=== PATIENT | female | born 1955 | race African-American/Black ===

== ENCOUNTER → 2023-02-12 | Outpatient (CLI) | payer SELFPAY ==
[~2023-02-12] MED LIST: AMLO-170 PO; HYDR25TA9 PO; MULT-235 PO; POTA-148 PO
[2023-02-12 16:48] LABS: HEMATOCRIT(ML) 34.6 % (36.0-46.0); HEMOGLOBIN 11.9 g/dL (12.0-15.0); MEAN CORP HGB 32.2 pg (26-34); MEAN CORP HGB CONCENTRATION 34.4 g/dL (33-36.5); MEAN CORP VOLUME 93.8 fL (78-100); RED BLOOD CELL 3.69 10^6/uL (4.00-5.20); WHITE BLOOD CELL 7.3 10^3/uL (4.5-11.0)
[2023-02-12 17:04] LABS: INR 1.3; PROTHROMBIN PROTIME 13.1 SEC (9.7-11.6)
[2023-02-12 17:16] LABS: ALBUMIN(ML) 3.2 g/dL (3.4-5.0); ALBUMIN/GLOBULIN RATIO 0.666; ANION GAP 13.6; CALCIUM 9.2 mg/dL (8.4-10.5); CARBON DIOXIDE 28.3 mmol/L (20.0-32); CREATININE SERUM 1.58 mg/dL (0.59-1.40); EST GFR, NON-AA 32.4 (>/=60); POTASSIUM 2.9 mmol/L (3.6-5.2)
== END | disposition home or self-care (01) ==
LOC: NPLAB 15:02
PROVIDERS: ATTEND Family Medicine
DX: I10 Essential (primary) hypertension (principal)
CPT/HCPCS: 36415; 80053; 85027; 85610; 85730

== ENCOUNTER 2023-02-20 07:59 | Inpatient (IN) | payer SELFPAY ==
[~2023-02-20] VITALS: Ht 152.4 cm; Wt 103.0 kg
[2023-02-20] VITALS (11 sets, daily range): BP systolic 126–155; BP diastolic 67–93; PULSE 78–93; RESP 16–20; TEMP 97.1–98.3; O2SAT 90–96
[~2023-02-20 07:59] MED LIST changes: -AMLO-170 PO; -HYDR25TA9 PO; -MULT-235 PO; +NS 100ML 100 ML IV ONE; +NS 3000ML IRR IR ONE; -POTA-148 PO; +ROCEPHIN IM ONE; +SODIUM CHLORIDE IRR BOTTLE IR ONE
[2023-02-20] MEDS: LACTATED RINGERS 1,000 ML IV SCH ×2 (08:30→17:29)
[2023-02-20] MEDS ORDERED: HYDR25TA9 PO (08:40)
[2023-02-20] MEDS ORDERED: AMLO-170 PO (08:40)
[2023-02-20] MEDS ORDERED: POTA-148 PO (08:40)
[2023-02-20] MEDS ORDERED: MULT-235 PO (08:40)
[2023-02-20] MEDS ORDERED: AMINOACETIC ACID IR ONE ×5 (09:35→11:31)
[2023-02-20] MEDS ORDERED: ZOFRAN ONE ×2 (09:49→09:52)
[2023-02-20] MEDS ORDERED: VERSED ONE (09:49)
[2023-02-20] MEDS ORDERED: NS 1000ML 1,000 ML ONE (09:49)
[2023-02-20] MEDS ORDERED: DIPRIVAN 100 ML IV ONE (09:49)
[2023-02-20] MEDS ORDERED: DECADRON ONE (09:49)
[2023-02-20] MEDS: ROCEPHIN 1,000 MG in NS 100ML 100 ML IV SCH (09:54)
[2023-02-20] MEDS ORDERED: SODIUM CHLORIDE IRR BOTTLE IR ONE ×2 (10:16→10:42)
[2023-02-20] MEDS ORDERED: DEMEROL IV PRN ×2 (12:30)
[2023-02-20] MEDS ORDERED: LACTATED RINGERS 1,000 ML IV SCH ×2 (12:30)
[2023-02-20] MEDS ORDERED: PHENERGAN IV PRN ×2 (12:30)
[2023-02-20] MEDS ORDERED: NS 3000ML IRR IR ONE (19:07)
[2023-02-21 00:40] VITALS: BP 127/77; PULSE 80; RESP 18; TEMP 97; O2SAT 95
[2023-02-21] MEDS: LACTATED RINGERS 1,000 ML IV SCH (03:59)
[2023-02-21 05:23] VITALS: BP 154/84; PULSE 79; RESP 17; TEMP 96.9; O2SAT 88
[2023-02-21 05:57] LABS: ANION GAP 11.4; CARBON DIOXIDE 29.8 mmol/L (20.0-32); POTASSIUM 3.2 mmol/L (3.6-5.2)
[2023-02-21 06:34] LABS: HEMATOCRIT(ML) 31.3 % (36.0-46.0); HEMOGLOBIN 10.6 g/dL (12.0-15.0); MEAN CORP HGB 32.5 pg (26-34); MEAN CORP HGB CONCENTRATION 33.9 g/dL (33-36.5); RED BLOOD CELL 3.26 10^6/uL (4.00-5.20); RED CELL DISTRIBUTION WIDTH 13.9 % (11.5-14.5); WHITE BLOOD CELL 8.4 10^3/uL (4.5-11.0)
[2023-02-21] MEDS ORDERED: NS 3000ML IRR IR ONE (06:58)
[2023-02-21] MEDS ORDERED: NORVASC PO SCH (09:00)
[2023-02-21 09:12] VITALS: BP 147/73; PULSE 74; RESP 19; TEMP 97.3; O2SAT 90
[2023-02-21] MEDS ORDERED: NS 100ML 100 ML IV ONE (09:42)
[2023-02-21] MEDS ORDERED: ROCEPHIN ONE (09:42)
[2023-02-21] MEDS: ROCEPHIN 1,000 MG in NS 100ML 100 ML IV SCH (09:44)
[2023-02-21] MEDS ORDERED: THERA PO SCH (10:00)
[2023-02-21] MEDS ORDERED: KLOR-CON 10 PO SCH (10:00)
[2023-02-21 12:46] VITALS: BP 153/79; PULSE 77; RESP 20; TEMP 97.3; O2SAT 95
[2023-02-21] MEDS ORDERED: TRAM50TA PO (13:02)
[2023-02-21] MEDS ORDERED: CIPR500T86 PO (13:02)
[2023-02-21 14:09] VITALS: BP 153/79; PULSE 77; RESP 20; TEMP 97.3; O2SAT 95
== END 2023-02-21 14:05 | disposition home or self-care (01) | DRG 670 ==
LOC: SURG 07:59 → CMPBEDREQ 12:02 → MS 12:25
PROVIDERS: ADMIT Urology; ATTEND Urology
PROC: BT1F1ZZ Fluoroscopy of Left Kidney, Ureter and Bladder using Low Osmolar Contrast (ICD-10-PCS; 2023-02-20)
PROC: 0TJB8ZZ Inspection of Bladder, Via Natural or Artificial Opening Endoscopic (ICD-10-PCS; principal; 2023-02-20 09:54)
PROC: 0TBC8ZZ Excision of Bladder Neck, Via Natural or Artificial Opening Endoscopic (ICD-10-PCS; 2023-02-20 09:54)
DX: D49.4 Neoplasm of unspecified behavior of bladder (principal); N32.9 Bladder disorder, unspecified; I10 Essential (primary) hypertension; E87.6 Hypokalemia
CPT/HCPCS: 36415; 80051; 82948; 85027; 93005; A4217; C1758; C1769; G0378; J0696; J1100; J2250; J2405; J3490; J7030; J7120